=== PATIENT | female | born 1975 | race Caucasian/White ===

== ENCOUNTER 2018-01-16 11:06 | Day surgery (SDC) | payer BC ==
[2018-01-16] MEDS ORDERED: LIDOCAINE 2% MDV (20MG/ML) 20ML VIAL IV ONE (11:07)
[2018-01-16] MEDS ORDERED: PROPOFOL 10 MG/ML VIAL IV ONE (11:07)
[2018-01-16] MEDS ORDERED: FENTANYL PF 100MCG/2ML VIAL IV ONE (11:07)
--- NOTE | 2018-01-17 12:50 | Operative Note ---
DATE OF SURGERY: 01/16/2018 OPERATION: ESOPHAGOGASTRODUODENOSCOPY. PREOPERATIVE DIAGNOSIS: Intractable heartburn and regurgitation reflux. POSTOPERATIVE DIAGNOSIS: Normal EGD. PROCEDURE: After informed consent was obtained from the patient, she was placed in the left lateral decubitus position in the endoscopy suite, sedated and monitored by the department of anesthesia. Once sedated, a well-lubricated [id number] gastroscope was placed in the posterior oropharynx and under direct visualization passed to the proximal esophagus. The endoscope was advanced through the proximal, mid, and distal esophagus. The GE junction, esophagus, gastric body, antrum, pylorus, duodenal bulb, and sweep were unremarkable. J-turn views of the proximal stomach were unremarkable. The endoscope was reinserted to the second portion of the duodenum and retracted once again through the duodenum, gastric antrum, body, cardia/fundus as well as the esophagus. No new findings or abnormalities were identified. RECOMMENDATIONS: The patient should continue on her current medical program. As always, thank you for allowing me to participate in the healthcare of your patients. CC: Dr. Gregg AGUILAR
== END 2018-01-16 12:01 | disposition home or self-care (01) ==
LOC: HOP 11:06
PROVIDERS: ATTEND Internal Medicine Gastroenterology
DX: K21.9 Gastro-esophageal reflux disease without esophagitis (principal); R12 Heartburn
CPT/HCPCS: 43235; 00731; J3010

== ENCOUNTER 2018-12-14 16:10 | Emergency (ER) | payer BC ==
[2018-12-14] MEDS ORDERED: Diph,Pert(Acell),Tet Vac 0.5 ML SYR IM ONE (17:09)
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
== END 2018-12-14 19:03 | disposition home or self-care (01) ==
LOC: ER 16:10
DX: S63.502A Unspecified sprain of left wrist, initial encounter (principal); S60.511A Abrasion of right hand, initial encounter; S60.311A Abrasion of right thumb, initial encounter; S80.211A Abrasion, right knee, initial encounter; S40.211A Abrasion of right shoulder, initial encounter; S00.81XA Abrasion of other part of head, initial encounter; S70.00XA Contusion of unspecified hip, initial encounter; V18.2XXA Unspecified pedal cyclist injured in noncollision transport accident in nontraffic accident, initial encounter; Y93.55 Activity, bike riding; Y92.89 Other specified places as the place of occurrence of the external cause; Z87.891 Personal history of nicotine dependence
CPT/HCPCS: 70486; 90715; 96372; 99283; 99284